=== PATIENT | female | born 2005 | race Caucasian/White ===

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

== ENCOUNTER 2025-01-28 03:29 | Emergency (ER) | payer OTHER, MEDICAID, SELFPAY ==
[2025-01-28 03:36] VITALS: BP 148/84; PULSE 91; RESP 16; TEMP 36.7; O2SAT 98; BMI 29.7
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
[2025-01-28 04:27] VITALS: BP 114/67; PULSE 92; RESP 16; TEMP 36.7; O2SAT 100
[2025-01-28] MEDS: Amoxicillin/Potassium Clav 875 MG TABLET PO (04:31)
[2025-01-28 04:36] VITALS: BP 114/67; PULSE 92; RESP 16; TEMP 36.7; O2SAT 100
== END 2025-01-28 04:36 | disposition home or self-care (01) ==
PROVIDERS: Emergency Provider Emergency Medicine; PCP Internal Medicine
DX: S61.452A Open bite of left hand, initial encounter (principal); W50.3XXA Accidental bite by another person, initial encounter; Y93.89 Activity, other specified; Y92.89 Other specified places as the place of occurrence of the external cause; Y99.0 Civilian activity done for income or pay
CPT/HCPCS: 99283; 99284